=== PATIENT | female | born 1985 | race Caucasian/White ===

== ENCOUNTER → 2024-12-12 | Outpatient (REF) | payer OTHER | LOC: MAMMO 10:05 | PROVIDERS: ATTEND Family Medicine | DX: Z12.31 Encounter for screening mammogram for malignant neoplasm of breast (principal); M85.88 Other specified disorders of bone density and structure, other site; R94.6 Abnormal results of thyroid function studies | CPT/HCPCS: 76536; 77067; 77080 ==